=== PATIENT | male | born 1980 | race Caucasian/White ===

== ENCOUNTER 2019-12-19 13:54 | Emergency (ER) | payer MEDICARE, OTHER ==
[~2019-12-19] VITALS: Ht 170.2 cm; Wt 99.3 kg
[~2019-12-19 13:54] MED LIST: ALBU90OI INH; ALBU90OI6 INH; ATOM40 PO; AZIT250 PO; BACL10 PO; BUPR150ER PO; CIPHYDOTSU OT; CIPR500 PO; COMBIVENT RESPIM4 GM INH; Cyclobenzaprine5 MG PO; DICL75ER PO; DIVA250EC PO; HYDACE5 PO; NAPR500 PO; NAPR500EC PO; OLAN10; OLAN10 PO; OXCA150 PO; PRAZ2 PO; PREG100 PO; TRAM50 PO; TRAZ100 PO; TRAZ50 PO; Ultram50 MG PO
== END 2019-12-19 16:39 | disposition home or self-care (01) ==
LOC: ER 13:54
DX: S93.402A Sprain of unspecified ligament of left ankle, initial encounter (principal); Z88.8 Allergy status to other drugs, medicaments and biological substances; Z79.899 Other long term (current) drug therapy; F31.9 Bipolar disorder, unspecified; F43.10 Post-traumatic stress disorder, unspecified; F17.210 Nicotine dependence, cigarettes, uncomplicated; W22.8XXA Striking against or struck by other objects, initial encounter
CPT/HCPCS: 73610